=== PATIENT | male | born 1970 | race Caucasian/White ===

== ENCOUNTER 2025-02-06 17:48 | Inpatient (IN) | payer BC ==
[2025-02-06 19:21] LABS: BASOPHILS ABSOLUTE AUTO 0.05 K/uL (0.00-0.10); BASOPHILS PERCENT AUTO 0.4 % (0.1-1.3); EOSINOPHILS ABSOLUTE AUTO 0.06 K/uL (0.00-0.40); EOSINOPHILS PERCENT AUTO 0.4 % (0.0-5.4); IMMATURE GRAN ABSOLUTE AUTO 0.10 K/uL (0.00-0.23); IMMATURE GRAN PERCENT AUTO 0.7 % (0.0-0.7); LYMPHOCYTES ABSOLUTE AUTO 2.36 K/uL (0.8-3.3); LYMPHOCYTES PERCENT AUTO 16.6 % (11.4-47.7); MONOCYTES ABSOLUTE AUTO 1.50 K/uL (0.20-0.90); MONOCYTES PERCENT AUTO 10.6 % (3.3-12.6); NEUTROPHILS ABSOLUTE AUTO 10.12 K/uL (1.0-7.6); NEUTROPHILS PERCENT AUTO 71.3 % (40.0-78.1); PLATELET COUNT,PLT 293 K/uL (130-375); RED BLOOD CELL COUNT 4.78 M/uL (4.14-5.76); WHITE BLOOD CELL COUNT,WBC 14.2 K/uL (3.2-11.0)
[2025-02-06] MEDS: Sodium Chloride 0.9% 10 ML Syringe FLUSH PRN (19:24)
[2025-02-06 19:50] LABS: A/G RATIO 0.9 (1.2-2.2); ALANINE AMINOTRANSFERASE,ALT 45 U/L (12-78); ASPARTATE AMNIOTRANSFERASE,AST 28 U/L (15-37); BILIRUBIN TOTAL 0.5 mg/dL (0.2-1.0); BLOOD UREA NITROGEN,BUN 40 mg/dL (7-18); CARBON DIOXIDE,CO2 40 mmol/L (21-32); CHLORIDE,CL 86 mmol/L (100-108); EST CRCL DRUG DOSING (CG) 28.38 mL/min; ESTIMATED GFR 20 mL/min (>60); GLUCOSE RANDOM 169 mg/dL (74-106); POTASSIUM,K 4.1 mmol/L (3.6-5.2); PROTEIN TOTAL,TP 7.3 g/dL (6.4-8.2); SODIUM,NA 133 mmol/L (140-148); TROPONIN I HIGH SENSITIVITY 24.6 pg/mL (<=60.3)
[2025-02-06 20:27] LABS: CREATININE 3.5 mg/dL (0.8-1.3)
[2025-02-06] MEDS ORDERED: Sodium Chloride 0.9% 10 ML Syringe FLUSH PRN (21:15)
[2025-02-06] MEDS ORDERED: Iopamidol 612 MG/ML 100 ML Bottle IV PRN (21:15)
[2025-02-06 22:50] LABS: APPEARANCE,URINE SLIGHTLY CLOUDY (CLEAR); GLUCOSE,URINE NEGATIVE (NEGATIVE); OCCULT BLOOD,URINE NEGATIVE (NEGATIVE)
[2025-02-06 22:52] LABS: SQUAMOUS EPITHELIAL CELLS,UR RARE /HPF; UROTHELIAL CELLS,URINE NOT SEEN /HPF
[2025-02-06 23:49] LABS: LACTIC ACID 3.8 mmol/L (0.4-2.0)
[2025-02-07] MEDS ORDERED: Sodium Chloride 0.9% 10 ML Syringe FLUSH PRN (00:01)
[2025-02-07] MEDS ORDERED: Insulin Lispro 100 Unit/ML 3 ML KwikPen SUBCUT SCH (00:01)
[2025-02-07] MEDS ORDERED: Sennosides/Docusate Sodium 50-8.6 MG Tab PO PRN (00:01)
[2025-02-07] MEDS ORDERED: Ondansetron 4 MG Tab.DIS PO PRN (00:01)
[2025-02-07 03:30] LABS: BASOPHILS ABSOLUTE AUTO 0.04 K/uL (0.00-0.10); BASOPHILS PERCENT AUTO 0.4 % (0.1-1.3); EOSINOPHILS ABSOLUTE AUTO 0.07 K/uL (0.00-0.40); EOSINOPHILS PERCENT AUTO 0.7 % (0.0-5.4); IMMATURE GRAN ABSOLUTE AUTO 0.04 K/uL (0.00-0.23); IMMATURE GRAN PERCENT AUTO 0.4 % (0.0-0.7); LYMPHOCYTES ABSOLUTE AUTO 2.12 K/uL (0.8-3.3); LYMPHOCYTES PERCENT AUTO 19.7 % (11.4-47.7); MONOCYTES ABSOLUTE AUTO 1.08 K/uL (0.20-0.90); MONOCYTES PERCENT AUTO 10.0 % (3.3-12.6); NEUTROPHILS ABSOLUTE AUTO 7.41 K/uL (1.0-7.6); NEUTROPHILS PERCENT AUTO 68.8 % (40.0-78.1); PLATELET COUNT,PLT 225 K/uL (130-375); RED BLOOD CELL COUNT 3.99 M/uL (4.14-5.76); WHITE BLOOD CELL COUNT,WBC 10.8 K/uL (3.2-11.0)
[2025-02-07 03:49] LABS: BLOOD UREA NITROGEN,BUN 40.0 mg/dL (7-18); CARBON DIOXIDE,CO2 36.0 mmol/L (21-32); CHLORIDE,CL 91.0 mmol/L (100-108); EST CRCL DRUG DOSING (CG) 26.14 mL/min; ESTIMATED GFR 18.0 mL/min (>60); GLUCOSE RANDOM 120.0 mg/dL (74-106); POTASSIUM,K 4.0 mmol/L (3.6-5.2); SODIUM,NA 132.0 mmol/L (140-148)
[2025-02-07 03:51] LABS: CREATININE 3.8 mg/dL (0.8-1.3)
[2025-02-07 03:57] LABS: LACTIC ACID 3.7 mmol/L (0.4-2.0)
[2025-02-07] MEDS: Insulin Lispro 100 Unit/ML 3 ML KwikPen SUBCUT SCH (07:45)
[2025-02-07] MEDS: Calcitonin (Salmon) 200 Units/ML 2 ML MDV SUBCUT ONE (09:50)
[2025-02-07] MEDS: Ondansetron 4 MG/2 ML SDV IV PRN (10:30)
[2025-02-07] MEDS ORDERED: LORazepam 2 MG/ML SDV IVPUSH PRN (12:37)
[2025-02-08] MEDS: Mometasone Furoate Nasal Spray 17 GM Canister NAS SCH (00:47)
[2025-02-08] MEDS: Aluminum Hydroxide/Magnesium Hydroxide/Simethicone Susp 30 ML Cup PO PRN (02:51)
[2025-02-08 06:27] LABS: PLATELET COUNT,PLT 236.0 K/uL (130-375); RED BLOOD CELL COUNT 3.92 M/uL (4.14-5.76); WHITE BLOOD CELL COUNT,WBC 10.9 K/uL (3.2-11.0)
[2025-02-08 06:45] LABS: BLOOD UREA NITROGEN,BUN 48.0 mg/dL (7-18); CARBON DIOXIDE,CO2 32.0 mmol/L (21-32); CHLORIDE,CL 90.0 mmol/L (100-108); EST CRCL DRUG DOSING (CG) 19.87 mL/min; ESTIMATED GFR 13.0 mL/min (>60); GLUCOSE RANDOM 139.0 mg/dL (74-106); POTASSIUM,K 3.8 mmol/L (3.6-5.2); SODIUM,NA 128.0 mmol/L (140-148)
[2025-02-08 06:48] LABS: CREATININE 5.0 mg/dL (0.8-1.3)
[2025-02-08] MEDS: Magnesium Sulfate 2 GM/50 mL 2 GM in Premix Bag 1 BAG IV SCH (09:01)
[2025-02-08] MEDS: Bumetanide 1 MG/4 ML MDV IVPUSH ONE (11:30)
[2025-02-09 06:09] LABS: BLOOD UREA NITROGEN,BUN 57.0 mg/dL (7-18); CARBON DIOXIDE,CO2 32.0 mmol/L (21-32); CHLORIDE,CL 91.0 mmol/L (100-108); EST CRCL DRUG DOSING (CG) 17.43 mL/min; ESTIMATED GFR 11.0 mL/min (>60); GLUCOSE RANDOM 158.0 mg/dL (74-106); POTASSIUM,K 3.5 mmol/L (3.6-5.2); SODIUM,NA 128.0 mmol/L (140-148)
[2025-02-09 06:12] LABS: CREATININE 5.7 mg/dL (0.8-1.3)
[2025-02-09] MEDS: Potassium Chloride 20 MEQ Tab.ER PO ONE (08:42)
[2025-02-09 22:29] LABS: PARATHYROID HORMONE,INTACT 8 pg/mL (18-59)
[2025-02-10 06:03] LABS: BLOOD UREA NITROGEN,BUN 65.0 mg/dL (7-18); CARBON DIOXIDE,CO2 30.0 mmol/L (21-32); CHLORIDE,CL 92.0 mmol/L (100-108); EST CRCL DRUG DOSING (CG) 17.43 mL/min; ESTIMATED GFR 11.0 mL/min (>60); GLUCOSE RANDOM 143.0 mg/dL (74-106); POTASSIUM,K 3.4 mmol/L (3.6-5.2); SODIUM,NA 129.0 mmol/L (140-148)
[2025-02-10 06:06] LABS: CREATININE 5.7 mg/dL (0.8-1.3)
[2025-02-10] MEDS: Magnesium Hydroxide 400 MG/5 ML Susp 30 ML Cup PO PRN (07:31)
[2025-02-10] MEDS: Potassium Chloride 20 MEQ Tab.ER PO ONE (08:55)
[2025-02-10] MEDS: Furosemide 40 MG/4 ML VIAL IVPUSH ONE (11:09)
[2025-02-11 05:50] LABS: BLOOD UREA NITROGEN,BUN 68.0 mg/dL (7-18); CARBON DIOXIDE,CO2 29.0 mmol/L (21-32); CHLORIDE,CL 103.0 mmol/L (100-108); EST CRCL DRUG DOSING (CG) 18.06 mL/min; ESTIMATED GFR 12.0 mL/min (>60); GLUCOSE RANDOM 157.0 mg/dL (74-106); POTASSIUM,K 4.1 mmol/L (3.6-5.2); SODIUM,NA 145.0 mmol/L (140-148)
[2025-02-11 05:52] LABS: CREATININE 5.5 mg/dL (0.8-1.3)
[2025-02-11 17:19] LABS: VITAMIN D,1,25-DIHYDROXY <5.0 pg/mL (19.9-79.3)
[2025-02-12 20:33] LABS: ALPHA 1 GLOBULIN 0.28 g/dL (0.19-0.46); ALPHA 2 GLOBULIN 0.91 g/dL (0.48-1.05); BETA GLOBULIN 0.71 g/dL (0.48-1.10); GAMMA 0.72 g/dL (0.62-1.51); IMMUNOFIXATION REFLEX IFE Done
[2025-02-15 09:40] LABS: PTHRP BY LC-MS/MS,PLASMA 3.5 pmol/L (0.0-2.3)
== END 2025-02-11 10:29 | disposition home or self-care (01) | DRG 720 ==
LOC: JP.ED 17:48 → JP.MS 23:06
PROVIDERS: ADMIT Nurse Practitioner; ATTEND Hospitalist
DX: A41.9 Sepsis, unspecified organism (principal); N17.9 Acute kidney failure, unspecified; Z66 Do not resuscitate; E86.0 Dehydration; E87.6 Hypokalemia; E83.42 Hypomagnesemia; E83.52 Hypercalcemia; K21.9 Gastro-esophageal reflux disease without esophagitis; G47.30 Sleep apnea, unspecified; H54.7 Unspecified visual loss; E11.9 Type 2 diabetes mellitus without complications; K59.00 Constipation, unspecified; I10 Essential (primary) hypertension; Z79.899 Other long term (current) drug therapy; Z79.84 Long term (current) use of oral hypoglycemic drugs
CPT/HCPCS: 36415; 51798; 71046; 71046-26; 74177; 77075; 77075-26; 80048; 80053; 81001; 82310; 82330; 82542; 82652; 82784; 82947; 83605; 83690; 83735; 83970; 84155; 84165; 84484; 85025; 85027; 86140; 86334; 87040; 87086; 93005; 93010; 96361; 96365; 96375; 99223; 99232; 99238; 99285-25; A9270-GY; J0630; J0696; J1650; J1938; J1939; J2405; J2470; J3475; J7030; J7040